=== PATIENT | male | born 1970 | race Caucasian/White ===

== ENCOUNTER 2025-05-10 20:56 | Emergency (ER) | payer OTHER ==
[~2025-05-10] VITALS: Ht 193 cm; Wt 110.0 kg
[2025-05-10 21:12] LABS: BLOOD/HGB, URINE LARGE (Negative); KETONE, URINE TRACE (Negative); LEUK ESTERASE, URINE NEGATIVE (negative); NITRITE, URINE NEGATIVE (negative)
[2025-05-10 21:13] LABS: BASOPHILS 0.6 % (0.2-1.2); EOSINOPHILS 1.7 % (0.8-7.0); LYMPHOCYTES 25.1 % (21.8-53.1); MCH 30.3 PG (25.7-32.2); MCHC 33.7 g/dL (32.3-36.5); MCV 90.1 fL (79.0-92.2); MONOCYTES 9.4 % (5.3-12.2); NEUTROPHILS 63.1 % (34.0-67.9); RBC 5.44 M/uL (4.63-6.08)
[2025-05-10] MEDS ORDERED: KETOROLAC TROMETHAMINE 15 MG/ML VIAL IV ONE (21:15)
[2025-05-10] MEDS ORDERED: MORPHINE SULFATE 4 MG/ML VIAL IV ONE (21:15)
[2025-05-10] MEDS ORDERED: SODIUM CHLORIDE 0.9% 1,000 ML IV ONE (21:15)
[2025-05-10 21:19] LABS: BACTERIA, URINE NONE SEEN /hpf (negative); CASTS, URINE NONE SEEN \\lpf; CRYSTALS, URINE NONE SEEN (0-1+); EPITHELIAL CELLS, URINE NONE SEEN /lpf (0-1+); REFLEX CULTURE, URINE No (No)
[2025-05-10 21:28] LABS: ALT (SGPT) 27.0 U/L (14-59); AST (SGOT) 17.0 U/L (15-37); GLOMERULAR FILTRATION RATE,EST 71.0 mL/min (>60); PROTEIN, TOTAL 8.0 g/dL (6.4-8.2); UREA NITROGEN 21.0 mg/dL (7-18)
[2025-05-10] MEDS ORDERED: ONDANSETRON ODT8 MG PO (22:10)
[2025-05-10] MEDS ORDERED: FLOMAX0.4 MG PO (22:10)
[2025-05-10] MEDS ORDERED: HYDROCODON-ACE1 EA10 PO (22:10)
[2025-05-10] MEDS ORDERED: TAMSULOSIN HCL 0.4 MG CAP PO ONE (22:15)
[2025-05-10] MEDS ORDERED: HYDROCODONE BIT/ACETAMINOPHEN 5/325 MG 1 TAB HOME.PACK PO ONE (22:15)
[2025-05-10] MEDS ORDERED: ONDANSETRON 4 MG HOME.PACK SL ONE (22:15)
[2025-05-10 22:31] VITALS: BP 142/94
== END 2025-05-10 22:34 | disposition home or self-care (01) ==
LOC: ED 20:56
PROVIDERS: Family Medicine
DX: N13.2 Hydronephrosis with renal and ureteral calculous obstruction (principal)
CPT/HCPCS: 36415; 74176; 80053; 81001; 83690; 85025; 96374; 96375; 99284-25; A9270; J1885; J2270; J2405; J7030